=== PATIENT | female | born 1990 | race African-American/Black ===

== ENCOUNTER 2016-09-24 18:04 | Emergency (ER) | payer SELFPAY ==
[~2016-09-24] VITALS: Ht 165.1 cm; Wt 70.5 kg
[~2016-09-24 18:04] MED LIST: ACET-3161 GT; ASPI-1159 PO; ATOR10TA69 PO; ATROV IH; BACL-141 PO; CARV25TA47 PO; CHOL100026 GT; CITA20TA11 PO; FLUT1DIS5 IH; FURO40TA5 PO; GABA-531 PO; GLIP10TA10 PO; HYDR-523 PO; ISOS30TA6 PO; LORA10TA7 PO; LORA1TAB PO; METF500T4 PO; MONT10TA24 PO; NITR0.4T SL; POTA10CA42 PO; PRED1TAB PO; PROAIR; RANI150C12 PO; entresto
[2016-09-24 18:17] VITALS: BP 134/81
== END 2016-09-24 22:00 | disposition left against medical advice (07) ==
LOC: ER 20:43
DX: Z53.21 Procedure and treatment not carried out due to patient leaving prior to being seen by health care provider (principal)